=== PATIENT | male | born 1960 | race Caucasian/White ===

== ENCOUNTER 2019-09-30 09:18 | Outpatient (CLI) | payer BC, SELFPAY ==
--- NOTE | ~2019-09-30 | US_ITS ---
EXAMINATION: US right upper quadrant DATE: 09/30/2019 10:12 INDICATION: Nonalcoholic cirrhosis of the liver. TECHNIQUE: Multiple grayscale and Doppler ultrasound images of the abdomen were obtained. COMPARISON: None FINDINGS: The visualized portions of the head and body of the pancreas are normal. The liver demonstr ates coarsened echotexture. No liver surface nodularity. The gallbladder is normal in size. No gallst ones or gallbladder wall thickening. There was no sonographic Anderson sign. The common duct is normal and measures 4 mm. IMPRESSION: 1. Coarsened liver echotexture, which may be seen with steatosis, cirrhosis, or hepatitis. Reviewed, dictated and finalized at location A.
== END 2019-09-30 09:19 | disposition home or self-care (01) ==
PROVIDERS: PCP Internal Medicine Gastroenterology; Visit Provider Internal Medicine Gastroenterology
DX: K74.60 Unspecified cirrhosis of liver (principal)
CPT/HCPCS: 76705